=== PATIENT | male | born 1945 | race Caucasian/White ===

== ENCOUNTER 2021-06-06 15:25 | Outpatient (CLI) | payer MEDICARE, SELFPAY ==
--- NOTE | 2021-06-06 12:50 | COLBX_PTH ---
PATIENT: ANDRIY LEBRON LOC: [facility] U#:[id number] AGE/SX: 76/M ROOM: RE06/06/[address]: Dr. Jose Aldridge MD : [id number] BED: DIS: 06/06/2021 SPEC #: [id number] RECD: 06/06/21 15:06 STATUS: DANIEL SCHWARZ #: [id number] LIS: 06/06/21 12:[address]: Jose Aldridge DEPT: SURGICAL PATHOLOGY RECD BY: Antionette Hernandez ENTERED: 06/07/21 09:37 SP TYPE: COLON BX OTHR DR: WINNIE Tissues: Cecum, NOS Procedures: Surgery Specimen Level IV HEADER OPERATION: Colonoscopy with polypectomy PRE-OP DIAGNOSIS: High risk screening / polyp TISSUE SUBMITTED: Cecum polyp, rule out adenoma MICROSCOPIC DIAGNOSIS Cecal polyp, biopsy: Fecal material present. See comment. AM:brigitte 06/08/2021 COMMENT Colonic mucosa is not represented in the biopsy. Clinical correlation is suggested. MICROSCOPIC DESCRIPTION Slides are reviewed. GROSS DESCRIPTION Received in fixative is one container labeled with the patient's name and designated cecum polyp. The specimen consists of multiple irregular fragments of light lam soft tissue resembling fecal material that in aggregate measure 2 x 0.2 x 0.1 cm. The specimen is totally submitted in one cassette. / SJ:brigitte 06/07/2021 TC:5 CPT: 68104
== END 2021-06-06 23:59 | disposition home or self-care (01) ==
PROVIDERS: Visit Provider Internal Medicine Gastroenterology
DX: Z12.11 Encounter for screening for malignant neoplasm of colon (principal); D12.0 Benign neoplasm of cecum
CPT/HCPCS: 88305